=== PATIENT | female | born 1985 | race Caucasian/White ===

== ENCOUNTER 2019-09-07 16:07 | Inpatient (IN) | payer BC ==
[2019-09-07] MEDS ORDERED: Nalbuphine 10 MG/ML Syringe IVPUSH PRN (19:28)
[2019-09-07] MEDS ORDERED: Ampicillin 2 GM in Sodium Chloride 0.9% 100 ML IV ONE (19:28)
[2019-09-07] MEDS ORDERED: Acetaminophen 325 MG Tab PO PRN (19:28)
[2019-09-07] MEDS ORDERED: Lidocaine 1% 50 ML MDV INJECT ONE (19:28)
[2019-09-07] MEDS ORDERED: Calcium Carbonate 500 MG Tab.Chew PO PRN (19:28)
[2019-09-07] MEDS ORDERED: Sodium Chloride 0.9% 10 ML Syringe FLUSH PRN (19:28)
[2019-09-07] MEDS ORDERED: Ondansetron 4 MG/2 ML SDV IVPUSH PRN (19:28)
[2019-09-07] MEDS ORDERED: Oxytocin/Lactated Ringers 10 UNIT/1,000 ML BAG IV SCH ×2 (19:30)
[2019-09-07] MEDS: Misoprostol 25 MCG (1/4 of 100 MCG) Tab VAG PRN (20:10)
--- NOTE | 2019-09-07 20:44 | PCM.LDHP ---
L&D History of Present Illness - General Date of Service: 09/07/19 Admit Problem/Dx: Patient Status Order with Admit Dx/Problem 09/07/19 19:28 Patient Status [ADT] Routine Admission Diagnosis/Problem Admission Diagnosis/Problem 09/07/19 20:32 Vilma is a 34-year-old 1 para 0 white female admitted on the evening of 09/07/2019 at 38-5/7 weeks gestational age with an KATELYN of 09/16/2019 for elective induction because of blood pressure elevation in . Source of Information: Patient History Limitations: Reports: No Limitations - History of Present Illness Introduction:: Vilma is a 34-year-old 1 para 0 white female admitted on the evening of 09/07/2019 at 38-5/7 weeks gestational age with an KATELYN of 09/16/2019 for elective induction because of blood pressure elevation in .Patient seen in clinic on 09/03/2019 which to her blood pressures ranged from 145-166 systolic over 80-88 diastolic. P [place] labs were unremarkable at that time. Patient no other symptoms or signs of preeclampsia. On reevaluation 09/07/2019 blood pressures are running 144-158 systolic over 7882 diastolic range. At this time the patient again did not report any signs or symptoms of preeclampsia. Preeclampsia labs were essentially within normal limits. A discussion was held as to the potential risk of development of preeclampsia as it relates to her blood pressures, clinical findings, gestational age and decision was made to proceed with induction of labor as it was felt that the benefits outweighed the risks. She is admitted for Cytotec/Pitocin induction of labor. 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 Patient's first visit was at 11 weeks gestational age and she was seen on a very regular basis. Weight increases to from 259 up to 273 pounds. Vital signs are stable until her recent blood pressure elevations. She is group B strep positive. She's been on citalopram but has weaned off of weeks. She declined influenza vaccination. She has a history of depression. Her [place] depression screening score however on 05/12/2019 was 3/30. Patient was on escitalapram at that time. Father' s noted to have a blood clotting disorder. He is noted to have mild hemophiliafactor VIII deficiency e- X-linked disorder. Patient has no bleeding problems noted in her history. Laboratory testing and : Blood is A+ with a negative antibody screen. Hemoglobin is 12.4 g/dL. MCV is 84.1 at first visit. Platelets were 271 ,000. She is rubella immune. RPR is nonreactive. Hepatitis B surface antigen and HIV assays were both negative. Chlamydia and gonorrhea assays were both negative. TSH on 06/08/2019 was 3.657 mU/mL which was within normal limits. Second trimester laboratory testing showed hemoglobin 11.6 g/dL which time she was started on ferrous sulfate 325 mg by mouth daily. Her platelet count was 248 ,000. Her 1 hour GTT was normal at 118. Third trimester hemoglobin is 11.5 g deciliter and platelets are 204,000. She is group B strep positive. Allergies: Seasonal allergies only no known drug allergies. Medications:. 1. Omeprazole magnesium 40 mg by mouth daily when necessary 2. Ferrous sulfate 325 mg by mouth daily 3. vitamins 1 daily. 4. Escitalapram 10 mg by mouth daily. Patient was to stop this at 36 weeks. Past medical history: 1. Obesity. 2. Depression Past surgical history: Unremarkable Family history: Mother is alive and well. Father is alive and well but with blood clotting factors as outlined above. Maternal grandmother with 2 miscarriages. She however is alive but has had some stents placed in her leg and neck for blood flow issues. Maternal grandfather is alive but with history of prostate cancer. Paternal grandmother is alive but has obesity problems. Paternal grandfather is secondary to suspected heart disease. No other family history cancer, bleeding,'s blood clotting, anesthesia related issues noted. Social history: Patient is . is Dario Langford. 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 She has had some college education. She lives in [place], [place]. She does not use any significant amounts of alcohol, drugs or tobacco. Review of systems: In general patient has no complaints. He has been active. She specifically has no symptoms of preeclampsia. Skin: Negative Lungs: No infectious symptoms or shortness of breath Cardiovascular: No chest pain or exercise intolerance Breasts: Changes associated with .. GI: Negative : Body habitus changes associated with . Musculoskeletal: Negative Neurological: Negative In general the patient is well-developed, well-nourished, pleasant female of stated age in no acute distress. Blood pressures recently in clinic as outlined in history of present illness. Her weight on last evaluation clinic is 273. Her height is 5 feet 7 inches. P[place] weight was 259 pounds. heart rate was 160 bpm. Skin is warm dry without lesions. HEENT, neck and back within normal limits. Lungs are clear with good breath sounds in all lung boyd. Cardiovascular exam shows regular and rhythm without murmurs. Abdomen is flat, soft, nontender without masses or organomegaly. Positive bowel sounds are noted. No inguinal lymphadenopathy or hernias are noted. Genital per speculum bimanual shows normal external genitalia, BUS, pubic hair pattern. There is normal support, secretions and estrogenization vagina. Uterus is small, anterior, freely mobile, without parametrial induration or adnexal abnormalities. Extremities and neurological exam are grossly within normal limits. - Related Data Allergies/Adverse Reactions: Allergies Allergy/AdvReac Type Severity Reaction Status Date / Time soybean Allergy Shortness Verified 09/07/19 23:23 of Breath Home Medications: Home Meds No122/Iron/Folic Acid [ Multi Tablet] 1 tab PO DAILY 08/05/19 [ History] Past Medical History - Past Health History Medical/Surgical History: Denies Medical/Surgical History H&P Review of Systems - Review of Systems: Review Of Systems: See Below L&D Exam - Exam Exam: See Below - Vital Signs Weight: 124.556 kg - Patient Data Lab Results Last 24 hrs: Laboratory Results - last 24 hr 09/07/19 Range/Units 19:55 WBC 11.14 H (3.98-10.04) K/mm3 RBC 4.02 (3.98-5.22) M/mm3 Hgb 11.1 L (11.2-15.7) gm/dl Hct 33.8 L (34.1-44.9) % MCV 84.1 (79.4-94.8) fl MCH 27.6 (25.6-32.2) pg MCHC 32.8 (32.2-35.5) g/dl RDW Std Deviation 45.1 (36.4-46.3) fL Plt Count 196 (182-369) K/mm3 MPV 10.7 (9.4-12.3) fl Neut % (Auto) 73.0 H (34.0-71.1) % Lymph % (Auto) 20.0 (19.3-51.7) % Ogle % (Auto) 4.7 (4.7-12.5) % Eos % (Auto) 1.9 (0.7-5.8) Baso % (Auto) 0.1 (0.1-1.2) % Neut # (Auto) 8.14 H (1.56-6.13) K/mm3 Lymph # (Auto) 2.23 (1.18-3.74) K/mm3 Ogle # (Auto) 0.52 H (0.24-0.36) K/mm3 Eos # (Auto) 0.21 (0.04-0.36) K/mm3 Baso # (Auto) 0.01 (0.01-0.08) K/mm3 Result Diagrams: 09/07/19 19:55 Problem List Initiated/Reviewed/Updated: Yes Orders Last 24hrs: Active Orders 24 hr Category Date Time Status Patient Status [ADT] Routine ADT 09/07/19 19:28 Active Activity as Tolerated [RC] PFP Care 09/07/19 19:28 Active Antiembolic Devices [RC] .Routine Care 09/07/19 19:30 Active Communication Order [RC] ASDIRECTED Care 09/07/19 19:28 Active Heart Tones [RC] ASDIRECTED Care 09/07/19 19:29 Active Non Stress Test [RC] PER UNIT ROUTINE Care 09/07/19 19:28 Active Notify Provider [RC] PFP Care 09/07/19 19:28 Active Notify Provider [RC] PRN Care 09/07/19 19:28 Active Peripheral IV Care [RC] . DIRECTED Care 09/07/19 19:29 Active VTE/DVT Education [RC] PER UNIT ROUTINE Care 09/07/19 19:30 Active Vital Signs [RC] PER UNIT ROUTINE Care 09/07/19 19:28 Active Regular Diet [DIET] Diet 09/08/19 Breakfast Active RAPID PLASMA REAGIN,RPR [CHEM] Routine Lab 09/07/19 19:55 Received Acetaminophen [Tylenol] Med 09/07/19 19:28 Active 650 mg PO Q4H PRN Ampicillin 1 gm Med 09/07/19 23:30 Active Sodium Chloride 0.9% [Normal Saline] 100 ml IV Q4H Calcium Carbonate [Tums] Med 09/07/19 19:28 Active 1,000 mg PO Q2H PRN Lactated Ringers [Ringers, Lactated] 1,000 ml Med 09/07/19 19:30 Active IV ASDIRECTED Nalbuphine [Nubain] Med 09/07/19 19:28 Active 10 mg IVPUSH Q2H PRN Ondansetron [Zofran] Med 09/07/19 19:28 Active 4 mg IVPUSH Q4H PRN Oxytocin/Lactated Ringers [Pitocin in LR 10 Units/1,000 Med 09/07/19 19:30 Active ML] 10 unit in 1,000 ml IV .CONTINUOUS Oxytocin/Lactated Ringers [Pitocin in LR 10 Units/1,000 Med 09/07/19 19:30 Active ML] 10 unit in 1,000 ml IV TITRATE Sodium Chloride 0.9% [Saline Flush] Med 09/07/19 19:28 Active 10 ml FLUSH ASDIRECTED PRN miSOPROStoL [Cytotec] Med 09/07/19 19:34 Active 25 mcg VAG Q4HR PRN DVT/VTE Prophylaxis Reflex [OM.PC] Routine Ot 09/07/19 19:30 Ordered Electronic Heart Tones Ext w TOCO [WOMSER] Oth 09/07/19 19:28 Ordered Routine Electronic Heart Tones Internal [WOMSER] Per Unit Ot 09/07/19 19:28 Ordered Routine Peripheral IV Insertion Adult [OM.PC] Routine Ot 09/07/19 19:28 Ordered Resuscitation Status Routine Resus Stat 09/07/19 19:28 Ordered Medication Orders Acetaminophen (Tylenol) 650 mg PO Q4H PRN PRN Reason: Pain (Mild 1-3) and fever Calcium Carbonate/Glycine (Tums) 1,000 mg PO Q2H PRN PRN Reason: Indigestion Ampicillin Sodium 1 gm/ Sodium (Chloride) 100 mls @ 200 mls/hr IV Q4H MYLES Lactated Ringer's (Ringers, Lactated) 1,000 mls @ 100 mls/hr IV ASDIRECTED MYLES Oxytocin/Lactated Ringer's (Pitocin In Lr 10 Units/1,000 Ml) 10 unit in 1,000 mls @ 500 mls/hr IV .CONTINUOUS MYLES Oxytocin/Lactated Ringer's (Pitocin In Lr 10 Units/1,000 Ml) 10 unit in 1,000 mls @ 12 mls/hr IV TITRATE MYLES; Protocol Misoprostol (Cytotec) 25 mcg VAG Q4HR PRN PRN Reason: cervical softening Last Admin: 09/07/19 20:10 Dose: 25 mcg Nalbuphine HCl (Nubain) 10 mg IVPUSH Q2H PRN PRN Reason: Pain Ondansetron HCl (Zofran) 4 mg IVPUSH Q4H PRN PRN Reason: Nausea/Vomiting Sodium Chloride (Saline Flush) 10 ml FLUSH ASDIRECTED PRN PRN Reason: Keep Vein Open Assessment/Plan Comment:: 1. 38-6/7 week intrauterine -progressive station of hypertension. 2. Risk factors include obesity 3. Patient is group B strep positive 4. Patient desires epidural in labor 5. Patient plans to breast-feed Plan: 1. Cytotec/Pitocin induction of labor along with AROM augmentation 2. Anticipate vaginal delivery. 3. Support breast-feeding incision 4. Routine labor care. 5. RPR upon admission per protocol.
[2019-09-08] MEDS: Ampicillin 1 GM in Sodium Chloride 0.9% 100 ML IV SCH ×5 (00:13→16:15)
[2019-09-08] MEDS: Misoprostol 25 MCG (1/4 of 100 MCG) Tab VAG PRN (00:13)
[2019-09-08] MEDS: Lactated Ringers 1,000 ML IV SCH ×2 (04:37→11:57)
[2019-09-08] MEDS ORDERED: fentaNYL 100 MCG/2 ML SDV EPIDUR PRN (06:13)
[2019-09-08] MEDS ORDERED: ePHEDrine 50 MG/ML SDV IVPUSH PRN (06:13)
[2019-09-08] MEDS ORDERED: Ondansetron 4 MG/2 ML SDV IVPUSH PRN (06:13)
[2019-09-08] MEDS ORDERED: fentaNYL/Bupivacaine/NS 2 MCG-0.125% 250 ML EPIDUR PRN (06:13)
--- NOTE | 2019-09-08 06:14 | PCM.PREANE ---
Preanesthetic Assessment - Anesthesia/Transfusion/Family Hx Anesthesia History: Prior Anesthesia Without Reaction Family History of Anesthesia Reaction: No Transfusion History: No Prior Transfusion(s) Intubation History: Unknown - Review of Systems General: No Symptoms Pulmonary: No Symptoms (smoker: 3 cigarettes/day) Cardiovascular: No Symptoms Gastrointestinal: No Symptoms (GERD) Neurological: No Symptoms Other: Reports: Depression - Physical Assessment NPO Status Date: 09/07/19 NPO Status Time: 18:00 Vital Signs: Last Vital Signs Temp 36.9 C 09/07/19 19:28 Pulse 104 H 09/07/19 19:28 Resp 16 09/07/19 19:28 BP 118/65 09/07/19 19:28 Pulse Ox 99 09/07/19 19:28 Height: 1.7 m Weight: 124.556 kg ASA Class: 2 Mental Status: Alert & Oriented x3 Airway Class: Mallampati = 2 Dentition: Reports: Normal Dentition, Caries Thyro-Mental Finger Breadths: 3 Mouth Opening Finger Breadths: 3 ROM/Head Extension: Full Lungs: Clear to Auscultation, Normal Respiratory Effort Cardiovascular: Regular Rate, Regular Rhythm, No Murmurs - Lab Values: Laboratory Last Values WBC 11.14 K/mm3 (3.98-10.04) H 09/07/19 19:55 RBC 4.02 M/mm3 (3.98-5.22) 09/07/19 19:55 Hgb 11.1 gm/dl (11.2-15.7) L 09/07/19 19:55 Hct 33.8 % (34.1-44.9) L 09/07/19 19:55 MCV 84.1 fl (79.4-94.8) 09/07/19 19:55 MCH 27.6 pg (25.6-32.2) 09/07/19 19:55 MCHC 32.8 g/dl (32.2-35.5) 09/07/19 19:55 RDW Std Deviation 45.1 fL (36.4-46.3) 09/07/19 19:55 Plt Count 196 K/mm3 (182-369) 09/07/19 19:55 MPV 10.7 fl (9.4-12.3) 09/07/19 19:55 Neut % (Auto) 73.0 % (34.0-71.1) H 09/07/19 19:55 Lymph % (Auto) 20.0 % (19.3-51.7) 09/07/19 19:55 [place] % (Auto) 4.7 % (4.7-12.5) 09/07/19 19:55 Eos % (Auto) 1.9 (0.7-5.8) 09/07/19 19:55 Baso % (Auto) 0.1 % (0.1-1.2) 09/07/19 19:55 Neut # (Auto) 8.14 K/mm3 (1.56-6.13) H 09/07/19 19:55 Lymph # (Auto) 2.23 K/mm3 (1.18-3.74) 09/07/19 19:55 [place] # (Auto) 0.52 K/mm3 (0.24-0.36) H 09/07/19 19:55 Eos # (Auto) 0.21 K/mm3 (0.04-0.36) 09/07/19 19:55 Baso # (Auto) 0.01 K/mm3 (0.01-0.08) 09/07/19 19:55 RPR Non-reactive (NONREACTIVE) 09/07/19 19:55 Above labs reviewed and noted and within acceptable ranges to proceed with epidural if desired. 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: Reports: Other OB/BYN History: g1 - Past Surgical History HEENT Surgical History: Reports: Other (See Below) Other HEENT Surgeries/Procedures: wisdom teeth removed-2010 - SUBSTANCE USE Smoking Status *Q: Current Every Day Smoker Tobacco Use Within Last Twelve Months: Cigarettes Days Per Week of Alcohol Use: 1 Number of Drinks Per Day: 1 Total Drinks Per Week: 1 Recreational Drug Use History: No - HOME MEDS Home Medications: Home Meds No122/Iron/Folic Acid [ Multi Tablet] 1 tab PO DAILY 08/05/19 [ History] - CURRENT (IN HOUSE) MEDS Current Meds: Current Medications Acetaminophen (Tylenol) 650 mg PO Q4H PRN PRN Reason: Pain (Mild 1-3) and fever Calcium Carbonate/Glycine (Tums) 1,000 mg PO Q2H PRN PRN Reason: Indigestion Ampicillin Sodium 1 gm/ Sodium (Chloride) 100 mls @ 200 mls/hr IV Q4H MYLES Last Admin: 09/08/19 04:20 Dose: 200 mls/hr Lactated Ringer's (Ringers, Lactated) 1,000 mls @ 100 mls/hr IV ASDIRECTED MYLES Last Admin: 09/08/19 04:37 Dose: 100 mls/hr Oxytocin/Lactated Ringer's (Pitocin In Lr 10 Units/1,000 Ml) 10 unit in 1,000 mls @ 500 mls/hr IV .CONTINUOUS MYLES Oxytocin/Lactated Ringer's (Pitocin In Lr 10 Units/1,000 Ml) 10 unit in 1,000 mls @ 12 mls/hr IV TITRATE MYLES; Protocol Last Titration: 09/08/19 05:45 Dose: 6 munits/min, 36 mls/hr Misoprostol (Cytotec) 25 mcg VAG Q4HR PRN PRN Reason: cervical softening Last Admin: 09/08/19 00:13 Dose: 25 mcg Nalbuphine HCl (Nubain) 10 mg IVPUSH Q2H PRN PRN Reason: Pain Ondansetron HCl (Zofran) 4 mg IVPUSH Q4H PRN PRN Reason: Nausea/Vomiting Sodium Chloride (Saline Flush) 10 ml FLUSH ASDIRECTED PRN PRN Reason: Keep Vein Open Discontinued Medications Ampicillin Sodium 2 gm/ Sodium (Chloride) 100 mls @ 200 mls/hr IV ONETIME ONE Stop: 09/07/19 19:57 Last Admin: 09/07/19 20:15 Dose: 200 mls/hr Lidocaine HCl (Xylocaine 1%) 50 ml INJECT ONETIME ONE Stop: 09/07/19 19:29
[2019-09-08] MEDS ORDERED: Lidocaine 1% 50 ML MDV ONE (16:09)
[2019-09-08] MEDS ORDERED: Misoprostol 200 MCG Tab ONE (16:24)
[2019-09-08] MEDS ORDERED: Misoprostol 200 MCG Tab PO STA (16:34)
--- NOTE | 2019-09-08 16:40 | PCM.SN ---
- Free Text/Narrative Note: Delivery note: Vilma is a 34-year-old 1 now para 1001 white female admitted on the evening of 09/07/2019 at 38-5/7 weeks gestational age with an KATELYN of 09/16/2019 for elective induction because of blood pressure elevation in .Patient was seen in clinic on 09/03/2019 at which time her blood pressures ranged from 145-166 systolic over 80-88 diastolic. Preeclampsia labs were unremarkable at that time. Patient no other symptoms or signs of preeclampsia. On reevaluation 09/07/2019 blood pressures are running 144-158 systolic over 7882 diastolic range. At this time the patient again did not report any signs or symptoms of preeclampsia. Preeclampsia labs were essentially within normal limits. A discussion was held as to the potential risk of development of preeclampsia as it relates to her blood pressures, clinical findings, gestational age and decision was made to proceed with induction of labor as it was felt that the benefits outweighed the risks. She was admitted for Cytotec/Pitocin induction of labor. Patient underwent Cytotec induction during the course of the evening and night of 09/07/2019. At approximately 0400 hrs. on 09/08/2019 she was started on Pitocin induction. She made slow progress. Approximately 7 AM artificial rupture membranes was undertaken with resultant clear amniotic fluid. She started on Pitocin and was increased to achieve a good labor pattern. By midday she was 3+ centimeters and an intrauterine pressure catheter was placed. heart tones remained reassuring throughout the whole labor course. She achieved complete cervical dilation by approximately 1530 hrs. At 1607 hrs. on 09/08/2019 she delivered a viable, peña, female in a right occiput anterior position. The baby weighed 2800 g (6 pounds 2.8 ounces), was 19.0 inches in length and had Apgars of 5 and 9. East on mom's abdomen. Cord was allowed to pulsate for approximately 1 minute then was clamped 2 and cut. 3 vessels were noted in the cord. Cord blood was obtained. Baby was taken to the warmer for further evaluation. The patient was noted to have a right labial/clitoral laceration and a first-degree vaginal perineal laceration. These were infiltrated with lidocaine 1% and they were repaired in routine fashion. The right labial/clitoral lacerations repaired with interrupted sutures and the posterior vagina and perineum medial laceration was repaired with a running stitch of 3-0 Monocryl. She tolerated this well. The placenta delivered in a [place] presentation, appeared intact and complete and was discarded per patient desire. She had approximately 400 mL of blood loss despite the Pitocin administration. She was given 600 g of Cytotec buccally. She plans to breast-feed. Condition: Good
[2019-09-08] MEDS ORDERED: Witch Hazel Medicated Pads 40/Jar TOP PRN (16:54)
[2019-09-08] MEDS ORDERED: Docusate Sodium 100 MG Cap PO PRN (16:54)
[2019-09-08] MEDS ORDERED: Benzocaine/Menthol 20%-0.5% Spray 56 GM Canister TOP PRN (16:54)
[2019-09-08] MEDS ORDERED: Acetaminophen 325 MG Tab PO PRN (16:54)
[2019-09-08] MEDS ORDERED: Ibuprofen 600 MG Tab PO PRN (16:54)
--- NOTE | 2019-09-09 07:42 | PCM.PNPP ---
- General Info Date of Service: 09/09/19 Functional Status: Reports: Pain Controlled - Review of Systems General: Reports: No Symptoms HEENT: Reports: No Symptoms Pulmonary: Reports: No Symptoms Cardiovascular: Reports: No Symptoms Gastrointestinal: Reports: No Symptoms Genitourinary: Reports: No Symptoms Musculoskeletal: Reports: No Symptoms Skin: Reports: No Symptoms Neurological: Reports: No Symptoms Psychiatric: Reports: No Symptoms - General Info Date of Service: 09/09/19 - Patient Data Vital Signs - Most Recent: Last Vital Signs Temp 36.9 C 09/09/19 02:34 Pulse 98 09/09/19 02:34 Resp 16 09/09/19 02:34 BP 139/72 09/09/19 02:34 Pulse Ox 97 09/09/19 02:34 Weight - Most Recent: 124.556 kg I&O - Last 24 Hours: Intake & Output 09/08/19 09/09/19 09/09/19 22:59 06:59 14:59 Intake Total 3120 Balance 3120 Med Orders - Current: Current Medications Acetaminophen (Tylenol) 650 mg PO Q4H PRN PRN Reason: mild pain or fever Benzocaine/Menthol (Dermoplast Pain Relief [place]) 0 gm TOP ASDIRECTED PRN PRN Reason: Perineal Comfort Measure Last Admin: 09/08/19 17:33 Dose: 1 canister Docusate Sodium (Colace) 100 mg PO BID PRN PRN Reason: Constipation Ibuprofen (Motrin) 600 mg PO Q4H PRN PRN Reason: Mild pain or fever Prenat Multivit/Cotton Machine Operator/Iron/Folic Ac ( Plus Iron) 1 each PO DAILY MYLES Carpenter (Tucks) 1 pad TOP ASDIRECTED PRN PRN Reason: Pain Last Admin: 09/08/19 17:33 Dose: 1 can Discontinued Medications Acetaminophen (Tylenol) 650 mg PO Q4H PRN PRN Reason: Pain (Mild 1-3) and fever Calcium Carbonate/Glycine (Tums) 1,000 mg PO Q2H PRN PRN Reason: Indigestion Ephedrine Sulfate (Ephedrine Sulfate) 5 mg IVPUSH ASDIRECTED PRN PRN Reason: Hypotension Fentanyl (Sublimaze) 100 mcg EPIDUR Q3H PRN PRN Reason: Pain Fentanyl/Bupivacaine HCl (Fentanyl/Bupivacaine/Ns 2 Mcg-0.125% 250 Ml) 250 ml EPIDUR CONTINUOUS PRN PRN Reason: Pain Ampicillin Sodium 2 gm/ Sodium (Chloride) 100 mls @ 200 mls/hr IV ONETIME ONE Stop: 09/07/19 19:57 Last Admin: 09/07/19 20:15 Dose: 200 mls/hr Ampicillin Sodium 1 gm/ Sodium (Chloride) 100 mls @ 200 mls/hr IV Q4H MYLES Last Admin: 09/08/19 16:15 Dose: Not Given Lactated Ringer's (Ringers, Lactated) 1,000 mls @ 100 mls/hr IV ASDIRECTED MYLES Last Admin: 09/08/19 11:57 Dose: 100 mls/hr Oxytocin/Lactated Ringer's (Pitocin In Lr 10 Units/1,000 Ml) 10 unit in 1,000 mls @ 500 mls/hr IV .CONTINUOUS MYLES Last Admin: 09/08/19 16:14 Dose: 500 mls/hr Oxytocin/Lactated Ringer's (Pitocin In Lr 10 Units/1,000 Ml) 10 unit in 1,000 mls @ 12 mls/hr IV TITRATE MYLES; Protocol Last Titration: 09/08/19 15:34 Dose: 18 munits/min, 108 mls/hr Lidocaine HCl (Xylocaine 1%) 50 ml INJECT ONETIME ONE Stop: 09/07/19 19:29 Last Admin: 09/08/19 16:15 Dose: 50 ml Lidocaine HCl (Xylocaine 1%) Confirm Administered Dose 50 ml .ROUTE .STK-MED ONE Stop: 09/08/19 16:10 Last Admin: 09/08/19 16:15 Dose: Not Given Misoprostol (Cytotec) 25 mcg VAG Q4HR PRN PRN Reason: cervical softening Last Admin: 09/08/19 00:13 Dose: 25 mcg Misoprostol (Cytotec) Confirm Administered Dose 600 mcg .ROUTE .STK-MED ONE Stop: 09/08/19 16:25 Last Admin: 09/08/19 16:25 Dose: 600 mcg Misoprostol (Cytotec) 600 mcg PO NOW STA Stop: 09/08/19 16:35 Nalbuphine HCl (Nubain) 10 mg IVPUSH Q2H PRN PRN Reason: Pain Last Admin: 09/08/19 15:20 Dose: 10 mg Ondansetron HCl (Zofran) 4 mg IVPUSH Q4H PRN PRN Reason: Nausea/Vomiting Ondansetron HCl (Zofran) 4 mg IVPUSH ONETIME PRN PRN Reason: Nausea/Vomiting Sodium Chloride (Saline Flush) 10 ml FLUSH ASDIRECTED PRN PRN Reason: Keep Vein Open - Interaction Support Person: - Recovery Exam Fundal Tone: Firm Fundal Level: At Umbilicus Fundal Placement: Midline Lochia Amount: None Lochia Color: Rubra/Red Perineum Description: Intact, Minimal Bruising/Swelling Bladder Status: Voiding Urinary Elimination: Voided - Exam General: Alert, Oriented HEENT: Pupils Equal Neck: Supple Lungs: Clear to Auscultation, Normal Respiratory Effort Cardiovascular: Regular Rate, Regular Rhythm GI/Abdominal Exam: Normal Bowel Sounds, Soft, Non-Tender, No Organomegaly, No Distention, No Abnormal Bruit, No Mass, Pelvis Stable Extremities: Normal Inspection, Normal Range of Motion, Non-Tender, No Pedal Edema, Normal Capillary Refill Skin: Warm, Dry, Intact Wound/Incisions: Healing Well Neurological: No New Focal Deficit - Problem List Review Problem List Initiated/Reviewed/Updated: Yes - Assessment Assessment:: Term labor. Likely home tomorrow. - Plan Plan:: Term PPD1. Likely discharge tomorrow.
[2019-09-09] MEDS: Prenatal Multivitamin with Calcium/Folic Acid/Iron Tab PO SCH (10:33)
--- NOTE | 2019-09-10 07:57 | PCM.DCSUM1 ---
Discharge Summary - Hospital Course Free Text/Narrative:: Vilma is a 34-year-old 1 now para 1001 white female admitted on the evening of 09/07/2019 at 38-5/7 weeks gestational age with an KATELYN of 09/16/2019 for elective induction because of blood pressure elevation in .Patient was seen in clinic on 09/03/2019 at which time her blood pressures ranged from 145-166 systolic over 80-88 diastolic. Preeclampsia labs were unremarkable at that time. Patient no other symptoms or signs of preeclampsia. On reevaluation 09/07/2019 blood pressures are running 144-158 systolic over 7882 diastolic range. At this time the patient again did not report any signs or symptoms of preeclampsia. Preeclampsia labs were essentially within normal limits. A discussion was held as to the potential risk of development of preeclampsia as it relates to her blood pressures, clinical findings, gestational age and decision was made to proceed with induction of labor as it was felt that the benefits outweighed the risks. She was admitted for Cytotec/Pitocin induction of labor. Patient underwent Cytotec induction during the course of the evening and night of 09/07/2019. At approximately 0400 hrs. on 09/08/2019 she was started on Pitocin induction. She made slow progress. Approximately 7 AM artificial rupture membranes was undertaken with resultant clear amniotic fluid. She started on Pitocin and was increased to achieve a good labor pattern. By midday she was 3+ centimeters and an intrauterine pressure catheter was placed. heart tones remained reassuring throughout the whole labor course. She achieved complete cervical dilation by approximately 1530 hrs. At 1607 hrs. on 09/08/2019 she delivered a viable, peña, female in a right occiput anterior position. The baby weighed 2800 g (6 pounds 2.8 ounces), was 19.0 inches in length and had Apgars of 5 and 9. East on mom's abdomen. Cord was allowed to pulsate for approximately 1 minute then was clamped 2 and cut. 3 vessels were noted in the cord. Cord blood was obtained. Baby was taken to the warmer for further evaluation. The patient was noted to have a right labial/clitoral laceration and a first-degree vaginal perineal laceration. These were infiltrated with lidocaine 1% and they were repaired in routine fashion. The right labial/clitoral lacerations repaired with interrupted sutures and the posterior vagina and perineum medial laceration was repaired with a running stitch of 3-0 Monocryl. She tolerated this well. The placenta delivered in a [place]o presentation, appeared intact and complete and was discarded per patient desire. She had approximately 400 mL of blood loss despite the Pitocin administration. She was given 600 g of Cytotec buccally. She plans to breast-feed. patient's bleeding came under good control. She was minimal lochia, voiding well, is ambulating well. Her vital signs are normal. Her pulse has been a little bit high but now is normalized. Her blood pressures which were elevated revealing the course of her hospital stay have now normalized also. She is ready for discharge. Condition: Good Diagnosis: Stroke: No - Discharge Data Discharge Date: 09/10/19 Discharge Disposition: Home, Self-Care 01 Condition: Good - Referral to Home Health Primary Care Physician: Lauro Patterson MD - Patient Instructions Diet: Regular Diet as Tolerated (Nursing diet was increased calories and calcium is recommended) Activity: As Tolerated (No intercourse or tampons until bleeding resolves) Driving: May Drive Today Showering/Bathing: May Shower (may take a bath) Notify Provider of: Fever, Increased Pain, Swelling and Redness, Nausea and/or Vomiting - Discharge Plan Home Medications: Home Meds No122/Iron/Folic Acid [ Multi Tablet] 1 tab PO DAILY 08/05/19 [ History] Acetaminophen [Tylenol] 650 mg PO Q4H PRN tablet 09/10/19 [Rx] Ibuprofen [Motrin] 600 mg PO Q4H PRN tablet 09/10/19 [Rx] Patient Handouts: Steps to Quit Smoking Referrals: Lauro Patterson MD [Primary Care Provider] - (Return to clinicDr. Patterson2 weeks.) - Discharge Summary/Plan Comment DC Time >30 min.: No Discharge Summary/Plan Comment: Discharge instructions: 1. Discharge home 2. Diet, activity and follow-up discussed with patient. Recommend nursing diet with increased calories and calcium. 3. Precautions given concern increased pain, bleeding, temperature, signs/ symptoms of DVT/PE. 4. Medications per home medication was printed, discussed with and given to the patient. 5. Return to clinic-Dr. Patterson-[facility] in 2 weeks. Diagnosis: Term -delivered Condition: Good - Patient Data Vitals - Most Recent: Last Vital Signs Temp 36.6 C 09/10/19 02:51 Pulse 92 09/10/19 02:51 Resp 16 09/10/19 02:51 BP 141/73 H 09/10/19 02:51 Pulse Ox 100 09/10/19 02:51 Weight - Most Recent: 124.556 kg I&O - Last 24 hours: Intake & Output 09/09/19 09/10/19 09/10/19 22:59 06:59 14:59 Intake Total 120 Balance 120 Med Orders - Current: Current Medications Acetaminophen (Tylenol) 650 mg PO Q4H PRN PRN Reason: mild pain or fever Benzocaine/Menthol (Dermoplast Pain Relief Loraine) 0 gm TOP ASDIRECTED PRN PRN Reason: Perineal Comfort Measure Last Admin: 09/08/19 17:33 Dose: 1 canister Docusate Sodium (Colace) 100 mg PO BID PRN PRN Reason: Constipation Ibuprofen (Motrin) 600 mg PO Q4H PRN PRN Reason: Mild pain or fever Prenat Multivit/Sewing Inspector/Iron/Folic Ac ( Plus Iron) 1 each PO DAILY MYLES Last Admin: 09/09/19 10:33 Dose: Not Given Александр Mcguireel (Tucks) 1 pad TOP ASDIRECTED PRN PRN Reason: Pain Last Admin: 09/08/19 17:33 Dose: 1 can Discontinued Medications Acetaminophen (Tylenol) 650 mg PO Q4H PRN PRN Reason: Pain (Mild 1-3) and fever Calcium Carbonate/Glycine (Tums) 1,000 mg PO Q2H PRN PRN Reason: Indigestion Ephedrine Sulfate (Ephedrine Sulfate) 5 mg IVPUSH ASDIRECTED PRN PRN Reason: Hypotension Fentanyl (Sublimaze) 100 mcg EPIDUR Q3H PRN PRN Reason: Pain Fentanyl/Bupivacaine HCl (Fentanyl/Bupivacaine/Ns 2 Mcg-0.125% 250 Ml) 250 ml EPIDUR CONTINUOUS PRN PRN Reason: Pain Ampicillin Sodium 2 gm/ Sodium (Chloride) 100 mls @ 200 mls/hr IV ONETIME ONE Stop: 09/07/19 19:57 Last Admin: 09/07/19 20:15 Dose: 200 mls/hr Ampicillin Sodium 1 gm/ Sodium (Chloride) 100 mls @ 200 mls/hr IV Q4H MYLES Last Admin: 09/08/19 16:15 Dose: Not Given Lactated Ringer's (Ringers, Lactated) 1,000 mls @ 100 mls/hr IV ASDIRECTED MYLES Last Admin: 09/08/19 11:57 Dose: 100 mls/hr Oxytocin/Lactated Ringer's (Pitocin In Lr 10 Units/1,000 Ml) 10 unit in 1,000 mls @ 500 mls/hr IV .CONTINUOUS MYLES Last Admin: 09/08/19 16:14 Dose: 500 mls/hr Oxytocin/Lactated Ringer's (Pitocin In Lr 10 Units/1,000 Ml) 10 unit in 1,000 mls @ 12 mls/hr IV TITRATE MYLES; Protocol Last Titration: 09/08/19 15:34 Dose: 18 munits/min, 108 mls/hr Lidocaine HCl (Xylocaine 1%) 50 ml INJECT ONETIME ONE Stop: 09/07/19 19:29 Last Admin: 09/08/19 16:15 Dose: 50 ml Lidocaine HCl (Xylocaine 1%) Confirm Administered Dose 50 ml .ROUTE .STK-MED ONE Stop: 09/08/19 16:10 Last Admin: 09/08/19 16:15 Dose: Not Given Misoprostol (Cytotec) 25 mcg VAG Q4HR PRN PRN Reason: cervical softening Last Admin: 09/08/19 00:13 Dose: 25 mcg Misoprostol (Cytotec) Confirm Administered Dose 600 mcg .ROUTE .STK-MED ONE Stop: 09/08/19 16:25 Last Admin: 09/08/19 16:25 Dose: 600 mcg Misoprostol (Cytotec) 600 mcg PO NOW STA Stop: 09/08/19 16:35 Last Admin: 09/09/19 10:33 Dose: Not Given Nalbuphine HCl (Nubain) 10 mg IVPUSH Q2H PRN PRN Reason: Pain Last Admin: 09/08/19 15:20 Dose: 10 mg Ondansetron HCl (Zofran) 4 mg IVPUSH Q4H PRN PRN Reason: Nausea/Vomiting Ondansetron HCl (Zofran) 4 mg IVPUSH ONETIME PRN PRN Reason: Nausea/Vomiting Sodium Chloride (Saline Flush) 10 ml FLUSH ASDIRECTED PRN PRN Reason: Keep Vein Open
[2019-09-10] MEDS: Prenatal Multivitamin with Calcium/Folic Acid/Iron Tab PO SCH (10:09)
[2019-09-10 10:13] VITALS: BP 144/82; PULSE 94
== END 2019-09-10 10:10 | disposition home or self-care (01) | DRG 560 ==
LOC: JD.OB 16:07 → OBSVTOIN 09-08 16:07 → JD.OB 09-08 16:08
PROVIDERS: ADMIT Obstetrics & Gynecology; ATTEND Obstetrics & Gynecology
PROC: 10E0XZZ Delivery of Products of Conception, External Approach (ICD-10-PCS; principal; 2019-09-08)
PROC: 10907ZC Drainage of Amniotic Fluid, Therapeutic from Products of Conception, Via Natural or Artificial Opening (ICD-10-PCS; 2019-09-08)
PROC: 3E033VJ Introduction of Other Hormone into Peripheral Vein, Percutaneous Approach (ICD-10-PCS; 2019-09-08)
PROC: 0HQ9XZZ Repair Perineum Skin, External Approach (ICD-10-PCS; 2019-09-08)
PROC: 0UQMXZZ Repair Vulva, External Approach (ICD-10-PCS; 2019-09-08)
PROC: 10H07YZ Insertion of Other Device into Products of Conception, Via Natural or Artificial Opening (ICD-10-PCS; 2019-09-08)
DX: O16.4 Unspecified maternal hypertension, complicating childbirth (principal); O70.0 First degree perineal laceration during delivery; Z3A.38 38 weeks gestation of pregnancy; Z37.0 Single live birth
CPT/HCPCS: 36415; 59025; 59409; 85025; 86592; A9270-GY; J0290; J2001; J2300; J2590; J7050; J7120

== ENCOUNTER 2024-12-10 07:08 | Inpatient (IN) | payer BC ==
[2024-12-10] MEDS ORDERED: Lidocaine 1% 50 ML MDV INJECT PRN (07:26)
[2024-12-10] MEDS ORDERED: Nalbuphine 10 MG/1 ML Vial IVPUSH PRN (07:26)
[2024-12-10] MEDS ORDERED: Oxytocin/0.9 % Sodium Chloride 30 UNIT/500 ML BAG IV SCH ×3 (07:30→21:47)
[2024-12-10 07:49] LABS: BASOPHILS PERCENT AUTO 0.5 % (0.0-1.0); EOSINOPHILS ABSOLUTE AUTO 0.2 K/mm3 (0.0-0.4); EOSINOPHILS PERCENT AUTO 2.5 % (0.0-6.0); HEMATOCRIT 33.7 % (37.0-47.0); HEMOGLOBIN 11.2 gm/dl (12.0-16.0); IMMATURE GRAN ABSOLUTE AUTO 0.04 K/mm3 (0.00-0.05); IMMATURE GRAN PERCENT AUTO 0.5 % (0.0-0.4); LYMPHOCYTES ABSOLUTE AUTO 2.1 K/mm3 (1.0-4.8); LYMPHOCYTES PERCENT AUTO 24.4 % (24.0-44.0); MEAN CORPUSCULAR HEMOGLOBIN 28.8 pg (28.0-32.0); MEAN CORPUSCULAR HGB CONC 33.2 g/dl (32.0-36.0); MEAN CORPUSCULAR VOLUME 86.6 fl (83.0-99.0); MEAN PLATELET VOLUME 11.9 fl (9.4-12.3); MONOCYTES ABSOLUTE AUTO 0.5 K/mm3 (0.0-0.8); MONOCYTES PERCENT AUTO 5.6 % (0.0-8.0); NEUTROPHILS ABSOLUTE AUTO 5.7 K/mm3 (1.8-7.7); NEUTROPHILS PERCENT AUTO 66.5 % (41.0-71.0); PLATELET COUNT,PLT 129 K/mm3 (150-400); RED BLOOD CELL COUNT 3.89 M/mm3 (4.10-5.30); WHITE BLOOD CELL COUNT,WBC 8.51 K/mm3 (3.9-11.3)
[2024-12-10 08:22] LABS: SLIDE REVIEW ABNORMAL SMEAR
[2024-12-10] MEDS: Oxytocin/0.9 % Sodium Chloride 30 UNIT/500 ML BAG IV SCH (08:32)
[2024-12-10] MEDS: Lactated Ringers 1,000 ML IV SCH (08:32)
[2024-12-10 08:36] LABS: CREATININE 0.7 mg/dL (0.55-1.02)
[2024-12-10 08:57] LABS: CREATININE,URINE RAND 215.6 mg/dL (30.0-125.0); PROTEIN CREATININE RATIO,URINE 176.3 mg/g (0-149)
[2024-12-10] MEDS ORDERED: Calcium Gluconate 10% 1 GM/10 ML SDV IV PRN (10:23)
[2024-12-10] MEDS: Labetalol 100 MG/20 ML MDV IVPUSH ONE (10:30)
[2024-12-10] MEDS: Magnesium Sulf/Wat 2 GM/50 mL 2 GM in Premix Bag 1 BAG IV ONE (10:50)
[2024-12-10] MEDS: Labetalol 100 MG/20 ML MDV IVPUSH STA (11:05)
[2024-12-10] MEDS: Magnesium Sulf/Wat 4 GM/50 mL 4 GM in Premix Bag 1 BAG IV ONE (11:08)
[2024-12-10] MEDS: Magnesium Sulf/Wat 40GM/1000mL 40 GM/1,000 ML BAG IV SCH (11:25)
[2024-12-10] MEDS: Ondansetron 4 MG/2 ML SDV IVPUSH PRN (12:14)
[2024-12-10] MEDS ORDERED: Sodium Chloride 0.9% 10 ML Syringe FLUSH PRN (18:07)
[2024-12-10] MEDS ORDERED: Lactated Ringers 1,000 ML IV SCH (18:15)
[2024-12-10] MEDS: Citric Acid/Sodium Citrate Solution 30 ML Cup PO ONE (18:17)
[2024-12-10] MEDS ORDERED: ceFAZolin 2 GM Vial ONE ×2 (18:23→18:27)
[2024-12-10] MEDS: ceFAZolin 2 GM in Sodium Chloride 0.9% 50 ML IV ONE (18:24)
[2024-12-10] MEDS: Metoclopramide 10 MG/2 ML SDV IVPUSH ONE (18:25)
[2024-12-10] MEDS ORDERED: Ondansetron 4 MG/2 ML SDV ONE (18:27)
[2024-12-10] MEDS: Azithromycin 500 MG in Sodium Chloride 0.9% 250 ML IV ONE (18:34)
[2024-12-10] MEDS ORDERED: Oxytocin 10 Units/1 ML SDV ONE (18:47)
[2024-12-10] MEDS ORDERED: Ketorolac 30 MG/ML SDV ONE (18:58)
[2024-12-10] MEDS ORDERED: Phenylephrine 1% 10 MG/ML SDV ONE (19:05)
[2024-12-10] MEDS ORDERED: Meperidine 50 MG/ML Vial IVPUSH PRN (20:06)
[2024-12-10] MEDS ORDERED: Ondansetron 4 MG/2 ML SDV IVPUSH PRN (20:06)
[2024-12-10] MEDS ORDERED: diphenhydrAMINE 50 MG/ML SDV IVPUSH PRN ×2 (20:06→21:47)
[2024-12-10] MEDS ORDERED: fentaNYL 100 MCG/2 ML SDV IVPUSH PRN (20:06)
[2024-12-10] MEDS ORDERED: Naloxone 0.4 MG/ML SDV IVPUSH PRN (21:47)
[2024-12-10] MEDS ORDERED: ePHEDrine 50 MG/ML SDV IVPUSH PRN (21:47)
[2024-12-10] MEDS ORDERED: Ondansetron 4 MG Tab.DIS PO PRN (21:47)
[2024-12-10] MEDS ORDERED: Hydrocortisone Acetate 25 MG Supp RECTAL PRN (21:47)
[2024-12-10] MEDS ORDERED: Magnesium Hydroxide 400 MG/5 ML Susp 30 ML Cup PO PRN (21:47)
[2024-12-10] MEDS ORDERED: Dextrose 5%-Lactated Ringers 1,000 ML IV SCH (21:47)
[2024-12-10] MEDS ORDERED: Witch Hazel Medicated Pads 40/Jar TOP PRN (21:47)
[2024-12-10] MEDS: Docusate Sodium 100 MG Cap PO SCH (23:01)
[2024-12-10] MEDS: Acetaminophen 325 MG Tab PO SCH (23:06)
[2024-12-10] MEDS: Simethicone 80 MG Tab.Chew PO SCH (23:07)
[2024-12-11] MEDS: Ketorolac 30 MG/ML SDV IVPUSH SCH (01:17)
[2024-12-11 05:41] LABS: HEMATOCRIT 28.4 % (37.0-47.0); MEAN CORPUSCULAR HEMOGLOBIN 28.3 pg (28.0-32.0); MEAN CORPUSCULAR HGB CONC 32.4 g/dl (32.0-36.0); MEAN CORPUSCULAR VOLUME 87.4 fl (83.0-99.0); MEAN PLATELET VOLUME 12.1 fl (9.4-12.3); PLATELET COUNT,PLT 137 K/mm3 (150-400); RED BLOOD CELL COUNT 3.25 M/mm3 (4.10-5.30); WHITE BLOOD CELL COUNT,WBC 14.86 K/mm3 (3.9-11.3)
[2024-12-11 05:50] LABS: HEMOGLOBIN 9.2 gm/dl (12.0-16.0)
[2024-12-11] MEDS: Pantoprazole 40 MG Tab.CR PO SCH (08:34)
[2024-12-11] MEDS: Prenatal Multivitamin with Calcium/Folic Acid/Iron Tab PO SCH (12:30)
[2024-12-11] MEDS: Ibuprofen 600 MG Tab PO SCH (19:45)
[2024-12-11] MEDS: oxyCODONE 5 MG Tab PO PRN ×2 (19:46→23:26)
[2024-12-11] MEDS: Tranexamic Acid 1,000 MG/10 ML Vial ONE (22:13)
[2024-12-11] MEDS: Acetaminophen 325 MG Tab PO SCH (22:19)
[2024-12-11] MEDS: Simethicone 80 MG Tab.Chew PO SCH (22:19)
[2024-12-11] MEDS: Sodium Chloride 0.9% 10 ML Syringe FLUSH SCH (22:19)
[2024-12-12] MEDS ORDERED: Ibuprofen 600 MG Tab PO SCH (07:30)
[2024-12-12] MEDS: Ibuprofen 600 MG Tab PO SCH (09:17)
[2024-12-12] MEDS: Labetalol 100 MG Tab PO SCH (18:57)
[2024-12-13 18:07] VITALS: BP 142/73; PULSE 79
== END 2024-12-13 17:15 | disposition home or self-care (01) | DRG 540 ==
LOC: JD.OBCHECK 07:08 → JD.OB 07:19 → OBSVTOIN 21:47
PROVIDERS: ADMIT Obstetrics & Gynecology; ATTEND Obstetrics & Gynecology
PROC: 10E0XZZ Delivery of Products of Conception, External Approach (ICD-10-PCS; 2024-12-10)
PROC: 3E033VJ Introduction of Other Hormone into Peripheral Vein, Percutaneous Approach (ICD-10-PCS; 2024-12-10)
PROC: 10907ZC Drainage of Amniotic Fluid, Therapeutic from Products of Conception, Via Natural or Artificial Opening (ICD-10-PCS; 2024-12-10)
PROC: 0HQ9XZZ Repair Perineum Skin, External Approach (ICD-10-PCS; 2024-12-10)
PROC: 10D00Z1 Extraction of Products of Conception, Low, Open Approach (ICD-10-PCS; principal; 2024-12-10 18:21)
DX: O13.4 Gestational [pregnancy-induced] hypertension without significant proteinuria, complicating childbirth (principal); Z37.2 Twins, both liveborn; D62 Acute posthemorrhagic anemia; O41.8X3 Other specified disorders of amniotic fluid and membranes, third trimester; O30.043 Twin pregnancy, dichorionic/diamniotic, third trimester; O99.214 Obesity complicating childbirth; O70.0 First degree perineal laceration during delivery; O71.82 Other specified trauma to perineum and vulva; O69.81X1 Labor and delivery complicated by cord around neck, without compression, fetus 1; O99.02 Anemia complicating childbirth; O62.1 Secondary uterine inertia; Z3A.37 37 weeks gestation of pregnancy
CPT/HCPCS: 36415; 59025; 59409; 82565; 82570; 83615; 84156; 84450; 84460; 84520; 85025; 85027; 86592; 86850; 86900; 86901; A9270-GY; J0456; J0690; J1885; J1920; J2371; J2405; J2590; J2765; J3475; J7120; J7999